=== PATIENT | female | born 1945 | race Caucasian/White ===

== ENCOUNTER 2023-09-27 16:07 | Emergency (ER) | payer OTHER, SELFPAY ==
[2023-09-27] VITALS (9 sets, daily range): BP systolic 100–120; BP diastolic 46–94; PULSE 77–90
[2023-09-27 16:31] LABS: % Immature Granulocytes 0.1 % (0-0.5); % Lymphocytes 22.8 % (20.5-51.1); % Monocytes 7.2 % (1.7-9.3); % Neutrophils 67.9 % (42.2-75.2); Absolute Basophils 0.1 10^3/uL (0-0.2); Absolute Eosinophils 0.1 10^3/uL (0-0.7); Absolute Lymphocytes 1.9 10^3/uL (1.2-3.4); Absolute Monocytes 0.6 10^3/uL (0.1-0.6); Absolute Neutrophils 5.5 10^3/uL (1.4-6.5); Hematocrit 40.1 % (37.0-47.0); Hemoglobin 13.4 g/dL (12.0-16.0); Mean Corp Hgb Conc. 33.4 g/dL (33.0-37.0); Mean Corpuscular Hgb 32.7 pg (27.0-31.0); Mean Corpuscular Volume 97.8 fL (81.0-99.0); Mean Platelet Volume 10.1 fL (7.4-10.4); Nucleated Red Blood Cells % 0 %; Platelet Count 226 10^3/uL (130-400); Red Cell Dist. Width 12.6 % (11.5-14.5); White Blood Cell Count 8.2 10^3/uL (4.8-10.8)
[2023-09-27 16:40] LABS: ALT (SGPT) 29 U/L (0-35); AST (SGOT) 27 U/L (14-36); Albumin 3.9 g/dl (3.5-5.0); Alkaline Phosphatase 80 U/L (38-126); Blood Urea Nitrogen 40 mg/dl (7-17); Calcium 9.5 mg/dl (8.4-10.2); Carbon Dioxide 19 mmol/L (22-30); Chloride 108 mmol/L (98-107); Glucose 147 mg/dl (70-99); Potassium 4.4 mmol/L (3.5-5.1); Sodium 134 mmol/L (135-145); Total Bilirubin 0.4 mg/dl (0.2-1.3); Total Protein 6.8 g/dl (6.3-8.2); eGFR 38.03
[2023-09-27 16:53] LABS: Troponin I < 0.012 ng/ml
[2023-09-27] MEDS: NSS 500 IV (17:26)
--- NOTE | 2023-09-27 20:22 | ED.GENMED ---
History of Present Illness
General
Chief Complaint: Fainting/Passed Out
Source: patient, spouse and family
Exam Limitations: none
Time Seen by Provider: 09/27/23 16:18
Nursing documentation reviewed up to this point in time: agreed with
Travel History
Have you had any contact with someone who has COVID-19?: No
Do you have any symptoms of coronavirus? Fever > 100 degrees, chills, cough, shortness of breath, sore throat, loss of taste or smell, muscle aches, or headache?: No
History of Present Illness
History of Present Illness:
78-year-old female with past medical history of A-fib currently on Eliquis and diltiazem, hypertension presenting to the emergency department today with concerns of syncopal episode after eating a meal. She stood up and she started to feel
lightheaded. She was able to get into a chair prior to passing out but was unconscious for a brief moment according to family members that witnessed the entire event otherwise is felt well since. Denies chest pain,
Past History
Past History
ED Past Medical History: Arrthythmia and HTN
ED Past Surgical History: Orthopedic
Social History
Tobacco: Non-smoker
Alcohol: None
Drug: None
Personal:
Living: with family
Employment: Retired
Family History
Family History: Other
Review of Systems
Review of Systems
Allergies reviewed?: Yes
All Other Systems: ROS reviewed and negative except as documented in HPI and ROS
Phy Exam
Physical Exam
Physical Exam:
GENERAL: Alert , in no apparent distress
EYE: pupils equal and reactive
NECK: Supple, no significant adenopathy.
ENT: o/p clr, mmm.
CARDIAC: Regular rate and rhythm .
LUNGS: Clear breath sounds bilaterally, no acute respiratory distress, no wheezes/rales/rhonchi
ABDOMEN: Soft, without focal tenderness, no r/g, no cvat
NEUROLOGICAL: Alert and oriented, no focal neuro deficits
SKIN: Warm and dry, skin intact.
MUSCULOSKELETAL: No edema, well perfused.
PSYCH: Normal and appropriate interaction.
Course
Orders/Labs/Results
Orders:
Orders
09/27/23 16:15
Electrocardiogram (*1) Urgent
Reason for Study: Syncope
EKG- Treatment ONCE
09/27/23 16:16
CMP [Comprehensive Metabolic Panel] Urgent
Complete Blood Count/With Diff Urgent
Troponin I Urgent
09/27/23 16:44
Orthostatic VS- Treatment ONCE
0.9% Sodium Chloride 500 ml [Nss] 500 ml IV BOLUS
09/27/23 16:45
Urinalysis Reflex To Culture Urgent
Abnormal Lab Results
09/27/23
16:16
RBC 4.10 L 10^6/uL
(4.20-5.40)
MCH 32.7 H pg
(27.0-31.0)
Sodium 134 L mmol/L
(135-145)
Chloride 108 H mmol/L
(98-107)
Carbon Dioxide 19 L mmol/L
(22-30)
BUN 40 H mg/dl
(7-17)
Creatinine 1.4 H mg/dL
(0.6-1.0)
Glucose 147 H mg/dl
(70-99)
09/27/23 16:16
09/27/23 16:16
Vital Signs
Initial and Last Documented VS:
Initial Vital Signs
Temp Pulse Resp BP Pulse Ox
98.2 F 80 16 109/66 98
09/27/23 16:10 09/27/23 16:10 09/27/23 16:10 09/27/23 16:10 09/27/23 16:10
Last Documented Vital Signs
Temp Pulse Resp BP Pulse Ox
98.2 F 88 19 103/46 96
09/27/23 16:10 09/27/23 19:45 09/27/23 19:45 09/27/23 19:11 09/27/23 19:45
MDM/Problems Addressed
MDM/Problems Addressed:
78-year-old female presenting today after a syncopal episode after eating brunch she stood up quickly felt lightheaded but was able to sit down prior to passing out passed out for a brief moment otherwise feels well since no palpitations no chest
pain or shortness of breath. Here vital signs normal patient well-appearing no acute distress normal neurologic evaluation. Labs do show slightly elevated creatinine and BUN ratio. She has been on increased Lasix recently and also did not drink
any water today and had an alcoholic drink. This may be the cause of patient's symptoms. She was given fluids here with complete resolution of symptoms able to walk and ambulate without any issues. No signs of cardiac abnormality. Stable for
discharge return precautions given.
*Critical Care Note
Total Time (30-74mins, 75-104mins- exclusive of procedures): Not Applicable
ED Attending Note
-
Portions of this chart may have been created with voice recognition software.� Occasional wrong word or��sound alike� substitutions may have occurred due to the inherent limitations of voice recognition software.
Discharge Plan
Departure
Patient Disposition: Home (Routine Discharge)
Date of Disposition: 09/27/23
Time of Disposition: 20:22
Patient with high blood pressure during this ER visit?: No
Condition: Good
Covid-19: Not Applicable
Discharge Problem:
Syncope
Instructions: Syncope (Fainting) (DC)
Prescriptions:
No Action
multivitamin 1 EACH tablet
1 ea PO DAILY
flaxseed oil 1,000 MG capsule
1,000 mg PO DAILY
lisinopril 20 mg tablet
20 mg PO DAILY
Eliquis 5 mg tablet
5 mg PO BID Qty: 60 0RF
glucosamine-chondroitin [Osteo Bi-Flex] 250-200 mg Tablet
2 tab PO BID
acetaminophen [Tylenol] 325 mg Tablet
650 mg PO BIDPRN PRN (Reason: mild pain)
diltiazem HCl 180 mg Capsule,Extended Release 24 Hr
180 mg PO DAILY
furosemide [Lasix] 20 mg tablet
20 mg PO DAILY 30 Days Qty: 30 0RF
Referrals:
Hali Palacios PA [Family Provider] -
Activity Restrictions/Additional Instructions:
The emergency department today after syncopal episode. She had a reassuring evaluation you were found to be likely dehydrated with elevated creatinine level of 1.4 BUN of 40. You are given fluids seem to be improving. Please follow close with
your primary care doctor as dehydrated. Return to the emergency department any worsening, new or concerning symptoms.
Interventions
Interventions:
*Risk Screen - Suicide Last Done: 09/27/23 16:10
*General Assessment Last Done: 09/27/23 16:10
*Neglect/Abuse Screening Last Done: 09/27/23 16:10
ED- Fall Risk Assessment Last Done: 09/27/23 16:10
*ED COVID-19 Vaccine History Last Done: 09/27/23 16:10
ED- Cardiac Assessment Last Done: 09/27/23 17:35
ED- Neurological Assessment Last Done: 09/27/23 19:17
Discharge Date and Time
Print Language: MAURITANIAN
== END 2023-09-27 20:30 | disposition home or self-care (01) ==
LOC: EMR 16:07
PROVIDERS: EMERGENCY PHYSICIAN Emergency Medicine; FAMILY PHYSICIAN Physician Assistant Medical
DX: R55 Syncope and collapse (principal); R79.89 Other specified abnormal findings of blood chemistry; I10 Essential (primary) hypertension; I48.91 Unspecified atrial fibrillation; M19.90 Unspecified osteoarthritis, unspecified site; Z79.01 Long term (current) use of anticoagulants; Z88.6 Allergy status to analgesic agent; Z88.2 Allergy status to sulfonamides; Z88.8 Allergy status to other drugs, medicaments and biological substances
CPT/HCPCS: 99284; 80053; 84484; 85025; 93005

== ENCOUNTER → 2024-01-13 10:05 | Outpatient (REF) | payer OTHER, SELFPAY | LOC: HWRCS 10:05 | PROVIDERS: ATTENDING PHYSICIAN Internal Medicine; FAMILY PHYSICIAN Physician Assistant Medical | DX: I36.1 Nonrheumatic tricuspid (valve) insufficiency (principal) | CPT/HCPCS: 93306 ==

== ENCOUNTER → 2024-05-31 15:46 | Outpatient (REF) | payer OTHER, SELFPAY | LOC: PAVMRI 15:46 | PROVIDERS: ATTENDING PHYSICIAN Orthopaedic Surgery; FAMILY PHYSICIAN Nurse Practitioner Primary Care | DX: M76.892 Other specified enthesopathies of left lower limb, excluding foot (principal); M25.552 Pain in left hip | CPT/HCPCS: 73721 ==

== ENCOUNTER 2024-08-27 14:51 | Emergency (ER) | payer OTHER, SELFPAY ==
[2024-08-27 14:56] VITALS: BP 152/79
[2024-08-27 15:02] VITALS: BMI 34.0
--- NOTE | 2024-08-27 15:23 | ED.GENMED ---
History of Present Illness
General
Chief Complaint: Skin Surface Trauma
Time Seen by Provider: 08/27/24 15:09
History of Present Illness
History of Present Illness:
78 yo female w/ hx of PAF on Eliquis presents for evaluation of a RLE laceration sustained after striking the leg against the bottom of her car door. Has not stopped bleeding since injury. Arrives w/ blood soaks pants and shoes. Last tetanus unknown
Past History
Past History
ED Past Medical History: Arrthythmia and HTN
ED Past Surgical History: Orthopedic
Social History
Tobacco: Non-smoker
Alcohol: None
Drug: None
Personal:
Living: with family
Employment: Retired
Family History
Family History: Other
Review of Systems
Review of Systems
Allergies reviewed?: Yes
All Other Systems: ROS reviewed and negative except as documented in HPI and ROS
Phy Exam
Physical Exam
Physical Exam:
GEN: Well appearing, NAD, WDWN
HEENT: Oral mucosa moist, no scleral icterus
Cardiac: Regular rate
Lung: No respiratory distress, no tachypnea
MSK: No gross deformity or injuries
Skin: Good color, no pallor or jaundice. 4cm linear laceration to right lower lateral leg, mild active oozing bleeding. No FB.
Neuro: AO x3, moves all extremities freely
Psych: Calm, cooperative
Course
Orders/Labs/Results
Orders:
Orders
08/27/24 16:01
Tetanus/Diphth/Acelpertussis [Adacel] 0.5 ml IM .ONCE ONE
Vital Signs
Initial and Last Documented VS:
Initial Vital Signs
Temp Pulse Resp BP Pulse Ox
98 F 87 16 152/79 97
08/27/24 14:56 08/27/24 14:56 08/27/24 14:56 08/27/24 14:56 08/27/24 14:56
Last Documented Vital Signs
Temp Pulse Resp BP Pulse Ox
98 F 87 16 152/79 97
08/27/24 14:56 08/27/24 14:56 08/27/24 14:56 08/27/24 14:56 08/27/24 14:56
Procedures
Laceration Closure
Right lower leg:
Size of Wound in cm: 4
Description of Wound Edges: sharp
Preparation: cleaned with saline
Anesthesia: 1% Lidocaine with epi
Wound exploration: explored to base- no FB
Type of Closure: single layer closure
Skin Closure Material: 4-0 nylon
Number of sutures: 7
MDM/Problems Addressed
MDM/Problems Addressed:
Laceration closed at the bedside. Tetanus status updated.
The patient returns to the ER several hours later for complaints of persistent bleeding from the wound. 5 mL of tranexamic acid was injected into the wound base and pressure was held with hemostasis achieved. Educated on further supportive care
*Critical Care Note
Total Time (30-74mins, 75-104mins- exclusive of procedures): Not Applicable
ED Attending Note
-
Portions of this chart may have been created with voice recognition software.� Occasional wrong word or��sound alike� substitutions may have occurred due to the inherent limitations of voice recognition software.
Discharge Plan
Departure
Patient Disposition: Home (Routine Discharge)
Date of Disposition: 08/27/24
Time of Disposition: 16:00
Patient with high blood pressure during this ER visit?: No
Discharge Problem:
Laceration of leg, right
Instructions: Laceration Repair With Stitches (DC)
Prescriptions:
No Action
multivitamin 1 EACH tablet
1 ea PO DAILY
flaxseed oil 1,000 MG capsule
1,000 mg PO DAILY
lisinopril 20 mg tablet
20 mg PO DAILY
Eliquis 5 mg tablet
5 mg PO BID Qty: 60 0RF
glucosamine-chondroitin [Osteo Bi-Flex] 250-200 mg Tablet
2 tab PO BID
acetaminophen [Tylenol] 325 mg Tablet
650 mg PO BIDPRN PRN (Reason: mild pain)
diltiazem HCl 180 mg Capsule,Extended Release 24 Hr
180 mg PO DAILY
furosemide [Lasix] 20 mg tablet
20 mg PO DAILY 30 Days Qty: 30 0RF
Referrals:
Hali Palacios PA [Family Provider] -
Activity Restrictions/Additional Instructions:
Minimize walking for the next 24 hours
Keep elevated when possible
You may begin washing with soap and water in 24 hours
Daily dressing changes and light washing starting tomorrow
Suture removal in 10-14 days by your primary doctor
Interventions
Interventions:
*Risk Screen - Suicide Last Done: 08/27/24 14:58
*General Assessment Last Done: 08/27/24 15:02
*Neglect/Abuse Screening Last Done: 08/27/24 14:58
*ED- Fall Risk Assessment Last Done: 08/27/24 15:02
*ED COVID-19 Vaccine History Last Done: 08/27/24 14:58
*Nursing Disposition Last Done: 08/27/24 16:17
ED-Skin Assessment Last Done: 08/27/24 15:02
Discharge Date and Time
Discharge Date/Time: 08/27/24 16:17
Print Language: MALAY
[2024-08-27] MEDS: ADACEL 0.5 ML IM (16:07)
== END 2024-08-27 16:17 | disposition home or self-care (01) ==
LOC: EMR 14:51
PROVIDERS: EMERGENCY PHYSICIAN Emergency Medicine; FAMILY PHYSICIAN Physician Assistant Medical
DX: S81.811A Laceration without foreign body, right lower leg, initial encounter (principal); W22.09XA Striking against other stationary object, initial encounter; I48.0 Paroxysmal atrial fibrillation; Z79.01 Long term (current) use of anticoagulants; Z23 Encounter for immunization
CPT/HCPCS: 99282; 12002; 90471; 90715